=== PATIENT | male | born 1945 | race Caucasian/White ===

== ENCOUNTER 2019-03-06 18:27 | Inpatient (IN) | payer MEDICARE, MEDICAID ==
[~2019-03-06] VITALS: Ht 167.6 cm; Wt 58.1 kg
[2019-03-06] MEDS ORDERED: SODIUM CHLORIDE 0.9% 1,000 ML IV ONE (19:40)
[2019-03-06] MEDS ORDERED: LEVETIRACETAM 500MG PREMIX 100 ML IV ONE (19:45)
[2019-03-06 20:14] LABS: HEMOGLOBIN. 11.5 g/dL (14.0-18.0); MEAN CORPUSCULAR HEMOGLOBIN 33.9 pg (28.0-32.0); MEAN CORPUSCULAR VOLUME 100.1 fL (80.0-94.0); MEAN PLATELET VOLUME 7.1 fl (7.4-10.4); PLATELET 323 x1000/uL (130-400)
[2019-03-06 20:16] LABS: PROTHROMBIN TIME 10.2 sec (9.6-11.0)
[2019-03-06 20:18] LABS: CHLORIDE 103 mEq/L (98-107)
[2019-03-06 20:23] LABS: ETHANOL BLOOD < 10 mg/dL
[2019-03-06 20:27] LABS: CREATINE KINASE 116 IU/L (39-308)
[2019-03-06] MEDS ORDERED: VALPROATE SODIUM 500 MG in SODIUM CHLORIDE 0.9% 100 ML IV STA (20:31)
[2019-03-06 20:32] LABS: PLATELET ESTIMATE NORMAL
[2019-03-06 21:02] LABS: CLARITY URINE CLEAR (CLEAR); COLOR URINE YELLOW (YELLOW); KETONES URINE TRACE (NEGATIVE); LEUKOCYTE ESTERASE URINE NEGATIVE (NEGATIVE); NITRITE URINE NEGATIVE (NEGATIVE); OCCULT BLOOD URINE NEGATIVE (NEGATIVE); PH URINE 6.5 (4.5-8.0); PROTEIN URINE NEGATIVE (NEGATIVE); SPECIFIC GRAVITY URINE 1.017 (1.005-1.030)
[2019-03-06] MEDS ORDERED: LEVOFLOXACIN 500MG PREMIX 100 ML IV ONE (21:15)
[2019-03-06] MEDS ORDERED: PIPERACILLIN/TAZ 3.375G PREMIX 50 ML IV ONE (21:15)
[2019-03-06 21:26] LABS: *AMPHETAMINES SCREEN URINE NEGATIVE (NEGATIVE)
[2019-03-06 21:27] LABS: *BARBITURATES SCREEN URINE NEGATIVE (NEGATIVE); *BENZODIAZEPINES SCREEN URINE PRESUMTIVE POSITIVE (NEGATIVE); *COCAINE SCREEN URINE NEGATIVE (NEGATIVE)
[2019-03-06 21:28] LABS: CANNABINOID URINE SCREEN NEGATIVE (NEGATIVE); METHADONE URINE SCREEN NEGATIVE (NEGATIVE); OPIATES URINE SCREEN NEGATIVE (NEGATIVE)
[2019-03-06] MEDS ORDERED: DILTIAZEM HCL 5MG/ML 5ML VIAL IV PRN (21:45)
[2019-03-06] MEDS ORDERED: MORPHINE SULFATE 2 MG/ML CPJ (NOT FOR IM USE) IV PRN (21:45)
[2019-03-06] MEDS ORDERED: CLONIDINE 0.1MG TABLET PO PRN (22:00)
[2019-03-06] MEDS ORDERED: PIPERACILLIN/TAZ 3.375G PREMIX 50 ML IV SCH (22:00)
[2019-03-06] MEDS ORDERED: VANCOMYCIN 1 G PREMIX 200 ML IV SCH (22:00)
[2019-03-06] MEDS ORDERED: DIPHENHYDRAMINE 50MG/ML VIAL IV PRN (22:00)
[2019-03-06] MEDS ORDERED: MAGNESIUM/ALUMINUM HYDROXIDE/SIMETHICONE 30ML UDC PO PRN (22:00)
[2019-03-06] MEDS ORDERED: HYDROCODONE/ACETAMINOPHEN 10/325MG TABLET PO PRN (22:00)
[2019-03-06] MEDS ORDERED: GUAIFENESIN 200MG/10ML SUGAR FREE UDC PO PRN (22:00)
[2019-03-06] MEDS ORDERED: ACETAMINOPHEN 325MG TABLET PO PRN (22:00)
[2019-03-06] MEDS ORDERED: ONDANSETRON HCL 4MG/2ML INJ IV PRN (22:00)
[2019-03-06] MEDS ORDERED: LORAZEPAM 2MG/ML CPJ IV PRN (22:00)
[2019-03-06] MEDS ORDERED: DOCUSATE SODIUM 100MG CAPSULE PO PRN (22:00)
[2019-03-06] MEDS ORDERED: IPRATROPIUM/ALBUTEROL 0.5-3(2.5)MG/3ML NEB INH PRN (22:00)
[2019-03-06 22:51] LABS: PHENCYCLIDINE URINE SCREEN NEGATIVE (NEGATIVE)
[2019-03-07] VITALS (31 sets, daily range): BP systolic 108–160; BP diastolic 61–87
[2019-03-07] MEDS: DEXAMETHASONE 4MG/ML 1ML VIAL IV SCH ×4 (00:10→18:05)
[2019-03-07] MEDS: DEXT 5%/LACTATED RINGERS 1,000 ML IV SCH ×2 (00:10→16:43)
[2019-03-07] MEDS: BLOOD SUGAR DIAGNOSTIC STRIP TEST SCH ×3 (00:16→18:06)
[2019-03-07] MEDS ORDERED: VANCOMYCIN 1 G PREMIX 200 ML IV NR (01:00)
[2019-03-07] MEDS ORDERED: GABA100C MT (02:22)
[2019-03-07] MEDS ORDERED: QUET25TA PO (02:22)
[2019-03-07] MEDS ORDERED: KEPP500 PO (02:23)
[2019-03-07] MEDS ORDERED: VALP250C3 PO (02:25)
[2019-03-07] MEDS ORDERED: GLIP5TAB12 PO (02:25)
[2019-03-07] MEDS ORDERED: METF-416 PO (02:30)
[2019-03-07] MEDS ORDERED: DONE10TA11 PO (02:30)
[2019-03-07] MEDS ORDERED: MELO-104 PO (02:30)
[2019-03-07] MEDS ORDERED: LEVO100T9 MT (02:30)
[2019-03-07] MEDS ORDERED: DOCU-150 PO (02:30)
[2019-03-07] MEDS ORDERED: FERR325T6 MT (02:30)
[2019-03-07] MEDS ORDERED: MELA3TAB MT (02:30)
[2019-03-07] MEDS ORDERED: ASPI-1393 PO (02:30)
[2019-03-07] MEDS: PIPERACILLIN/TAZOBACTAM 3.375 G in DEXT 5% WATER 100 ML IV SCH ×3 (06:20→21:47)
[2019-03-07] MEDS: SODIUM CHLORIDE 0.9% INJ 3ML FLUSH IVF SCH ×2 (06:20→21:47)
[2019-03-07 06:28] LABS: CHLORIDE 101 mEq/L (98-107)
[2019-03-07 06:41] LABS: HEMOGLOBIN. 10.9 g/dL (14.0-18.0); MEAN CORPUSCULAR HEMOGLOBIN 34.9 pg (28.0-32.0); MEAN CORPUSCULAR VOLUME 98.8 fL (80.0-94.0); MEAN PLATELET VOLUME 7.3 fl (7.4-10.4); PLATELET 292 x1000/uL (130-400); RED BLOOD CELL COUNT 3.13 mill/uL (4.7-6.1); RED CELL DISTRIBUTION WIDTH 13.6 % (11.6-14.6)
[2019-03-07] MEDS ORDERED: LEVETIRACETAM 500MG in SODIUM CHLORIDE 0.9% 100ML IV SCH (09:00)
[2019-03-07] MEDS ORDERED: LEVETIRACETAM 500MG PREMIX 100 ML IV SCH (09:00)
[2019-03-07 12:06] LABS: PLATELET ESTIMATE NORMAL
[2019-03-07] MEDS: VANCOMYCIN 750 MG PREMIX 150 ML IV SCH (18:05)
[2019-03-07] MEDS ORDERED: LEVETIRACETAM 500 MG in SODIUM CHLORIDE 0.9% 100 ML IV NR (18:30)
[2019-03-07 20:15] LABS: BG BASE EXCESS -0.6 mmol/L (-2.0-2.0); BG CARBOXYHEMOGLOBIN 0.3 % (0.5-1.5); BG DEOXYHEMOGLOBIN 22.7 % (0.0-5.0); BG FRACTION INSPIRED OXYGEN 36; BG HCO3 ACT 22.1 mmol/L (22.0-26.0); BG METHEMOGLOBIN 0.3 % (0.0-1.5); BG OXYGEN SATURATION 77.2 % (92.0-98.5); BG OXYHEMOGLOBIN 76.7 % (94.0-97.0); BG PH 7.471 (7.350-7.450); BG PO2 40.2 mmHg (75.0-100.0); BG SAMPLE SITE RIGHT BRACHIAL; BG TOTAL HEMOGLOBIN 13.3 g/dL (12.0-18.0); BG VENT MODE NASAL CANNULA
[2019-03-07] MEDS ORDERED: MANNITOL 12.5G (25%) VIAL 50ML IV NR (20:15)
[2019-03-07] MEDS ORDERED: MANNITOL 20% (20GM/100ML) BAG 500ML PREMIX IV ONE (20:15)
[2019-03-07] MEDS ORDERED: PROPOFOL 10MG/ML 100ML 100 ML IV PRN (20:45)
[2019-03-07] MEDS ORDERED: LEVETIRACETAM 1,000 MG in SODIUM CHLORIDE 0.9% 100 ML IV SCH (21:00)
[2019-03-07] MEDS: LEVETIRACETAM 1,000 MG in SODIUM CHLORIDE 0.9% 100 ML IV SCH (21:46)
[2019-03-07 21:49] LABS: BG BASE EXCESS -1.9 mmol/L (-2.0-2.0); BG CARBOXYHEMOGLOBIN 0.3 % (0.5-1.5); BG DEOXYHEMOGLOBIN 0.5 % (0.0-5.0); BG FRACTION INSPIRED OXYGEN 100; BG HCO3 ACT 21.2 mmol/L (22.0-26.0); BG METHEMOGLOBIN 0.3 % (0.0-1.5); BG OXYGEN SATURATION 99.5 % (92.0-98.5); BG OXYHEMOGLOBIN 98.9 % (94.0-97.0); BG PCO2 31.1 mmHg (35.0-45.0); BG PH 7.451 (7.350-7.450); BG PIP 29 cmH2O; BG PO2 517.5 mmHg (75.0-100.0); BG SAMPLE SITE RIGHT BRACHIAL; BG TIDAL VOLUME(mL) 500 mL; BG TOTAL HEMOGLOBIN 12.8 g/dL (12.0-18.0); BG VENT MODE VENT - A/C; BG VENT RATE 12 set
[2019-03-07] MEDS ORDERED: SUCCINYLCHOLINE CHLORIDE 200MG/10ML IV ONE (22:00)
[2019-03-07] MEDS ORDERED: ETOMIDATE 2MG/ML 10ML VIAL IV ONE (22:00)
[2019-03-08] VITALS (85 sets, daily range): BP systolic 99–156; BP diastolic 57–96
[2019-03-08] MEDS: DEXAMETHASONE 4MG/ML 1ML VIAL IV SCH ×5 (00:26→23:28)
[2019-03-08] MEDS: BLOOD SUGAR DIAGNOSTIC STRIP TEST SCH ×5 (00:40→23:22)
[2019-03-08] MEDS: IPRATROPIUM/ALBUTEROL 0.5-3(2.5)MG/3ML NEB HHN SCH ×4 (02:21→20:08)
[2019-03-08] MEDS: VANCOMYCIN 750 MG PREMIX 150 ML IV SCH ×2 (05:06→17:12)
[2019-03-08] MEDS: SODIUM CHLORIDE 0.9% INJ 3ML FLUSH IVF SCH ×3 (05:06→21:21)
[2019-03-08] MEDS: PIPERACILLIN/TAZOBACTAM 3.375 G in DEXT 5% WATER 100 ML IV SCH ×3 (06:34→21:21)
[2019-03-08 08:41] LABS: BG DEOXYHEMOGLOBIN 1.5 % (0.0-5.0); BG FRACTION INSPIRED OXYGEN 40; BG HCO3 ACT 21.5 mmol/L (22.0-26.0); BG OXYGEN SATURATION 98.5 % (92.0-98.5); BG OXYHEMOGLOBIN 98.5 % (94.0-97.0); BG PH 7.488 (7.350-7.450); BG PO2 134.2 mmHg (75.0-100.0); BG SAMPLE SITE RIGHT RADIAL; BG TIDAL VOLUME(mL) 500 mL; BG TOTAL HEMOGLOBIN 11.5 g/dL (12.0-18.0); BG VENT MODE VENT - A/C; BG VENT RATE 12 set
[2019-03-08] MEDS ORDERED: PROPOFOL 200MG/20ML VIAL IV ONE (09:04)
[2019-03-08] MEDS ORDERED: FENTANYL CITRATE/PF 50MCG/ML 2ML VIAL ONE (09:04)
[2019-03-08] MEDS ORDERED: ROCURONIUM BROMIDE 10MG/ML VIAL 5ML IV ONE (09:04)
[2019-03-08] MEDS ORDERED: MIDAZOLAM HCL 2 MG/2 ML VIAL ONE (09:05)
[2019-03-08] MEDS ORDERED: THROMBIN (BOVINE) 5000 UNITS/VIAL TOP ONE (09:16)
[2019-03-08] MEDS ORDERED: POVIDONE-IODINE OINT 28.4GM TOP ONE (09:16)
[2019-03-08] MEDS ORDERED: LIDOCAINE HCL/EPINEPHRINE 1%-EPI 1:100,000 20 ML VIAL ONE (09:16)
[2019-03-08] MEDS ORDERED: BACITRACIN 15GM TUBE TOP ONE ×2 (09:16→09:53)
[2019-03-08] MEDS ORDERED: NORMAL SALINE 0.9% 10 ML SYR ONE (09:16)
[2019-03-08] MEDS ORDERED: LACTATED RINGERS 3,000 ML IV ONE (09:17)
[2019-03-08] MEDS ORDERED: BACITRACIN 50,000 UNITS/VIAL ONE (09:17)
[2019-03-08] MEDS: LEVETIRACETAM 1,000 MG in SODIUM CHLORIDE 0.9% 100 ML IV SCH ×2 (09:28→20:43)
[2019-03-08] MEDS ORDERED: HYDRALAZINE 20MG/ML VIAL IV PRN (09:30)
[2019-03-08] MEDS ORDERED: INSULIN REGULAR (HUMULIN R) 300UNITS/3ML IV NR (10:15)
[2019-03-08] MEDS ORDERED: MORPHINE SULFATE 2 MG/ML CPJ (NOT FOR IM USE) IV PRN (12:45)
[2019-03-08] MEDS ORDERED: DEXTROSE 50% WATER 50ML SYRINGE IV PRN (14:30)
[2019-03-08] MEDS: DEXT 5%/LACTATED RINGERS 1,000 ML IV SCH (14:41)
[2019-03-08] MEDS: MICONAZOLE NITRATE 2% OINT 71GM TOP SCH ×2 (14:42→20:43)
[2019-03-08] MEDS: INSULIN LISPRO 100 UNITS/ML SUBCUT SCH ×2 (17:12→23:29)
[2019-03-08] MEDS ORDERED: BLOOD SUGAR DIAGNOSTIC STRIP TEST SCH (18:00)
[2019-03-08] MEDS: NICARDIPINE 100 MG in SODIUM CHLORIDE 0.9% 60 ML IV PRN (21:57)
[2019-03-09] VITALS (89 sets, daily range): BP systolic 115–145; BP diastolic 48–84
[2019-03-09] MEDS: DEXT 5%/LACTATED RINGERS 1,000 ML IV SCH ×2 (02:00→18:21)
[2019-03-09] MEDS: IPRATROPIUM/ALBUTEROL 0.5-3(2.5)MG/3ML NEB HHN SCH ×4 (03:12→20:11)
[2019-03-09] MEDS: PIPERACILLIN/TAZOBACTAM 3.375 G in DEXT 5% WATER 100 ML IV SCH ×3 (05:42→22:59)
[2019-03-09 05:55] LABS: BASOPHILS % 0.3 % (0.0-2.0); HEMATOCRIT. 32.3 % (42.0-52.0); HEMOGLOBIN. 11.5 g/dL (14.0-18.0); LYMPHOCYTES % 7.7 % (20.0-50.0); MEAN CORPUSCULAR HEMOGLOBIN 34.7 pg (28.0-32.0); MEAN CORPUSCULAR VOLUME 97.8 fL (80.0-94.0); MEAN PLATELET VOLUME 7.2 fl (7.4-10.4); MONOCYTES % 4.9 % (2.0-8.0); NEUTROPHILS % 87.1 % (40.0-76.0); PLATELET 292 x1000/uL (130-400); RED BLOOD CELL COUNT 3.31 mill/uL (4.7-6.1); RED CELL DISTRIBUTION WIDTH 13.6 % (11.6-14.6)
[2019-03-09 05:57] LABS: CHLORIDE 96 mEq/L (98-107)
[2019-03-09] MEDS: DEXAMETHASONE 4MG/ML 1ML VIAL IV SCH ×3 (06:04→17:12)
[2019-03-09 06:05] LABS: VANCOMYCIN TROUGH 5.9 ug/mL (5.0-10.0)
[2019-03-09] MEDS: SODIUM CHLORIDE 0.9% INJ 3ML FLUSH IVF SCH ×3 (06:06→22:59)
[2019-03-09] MEDS: INSULIN LISPRO 100 UNITS/ML SUBCUT SCH ×3 (06:06→17:12)
[2019-03-09] MEDS: BLOOD SUGAR DIAGNOSTIC STRIP TEST SCH ×3 (06:06→17:01)
[2019-03-09] MEDS: VANCOMYCIN 750 MG PREMIX 150 ML IV SCH (06:33)
[2019-03-09] MEDS: LEVETIRACETAM 1,000 MG in SODIUM CHLORIDE 0.9% 100 ML IV SCH ×2 (08:08→20:41)
[2019-03-09] MEDS: MICONAZOLE NITRATE 2% OINT 71GM TOP SCH ×2 (08:08→20:41)
[2019-03-09 08:27] LABS: BG BASE EXCESS -0.4 mmol/L (-2.0-2.0); BG CARBOXYHEMOGLOBIN 0.3 % (0.5-1.5); BG DEOXYHEMOGLOBIN 0.9 % (0.0-5.0); BG FRACTION INSPIRED OXYGEN 40; BG METHEMOGLOBIN 0.3 % (0.0-1.5); BG OXYGEN SATURATION 99.1 % (92.0-98.5); BG OXYHEMOGLOBIN 98.5 % (94.0-97.0); BG PCO2 29.2 mmHg (35.0-45.0); BG PH 7.494 (7.350-7.450); BG PO2 189.2 mmHg (75.0-100.0); BG SAMPLE SITE RIGHT RADIAL; BG TIDAL VOLUME(mL) 500 mL; BG TOTAL HEMOGLOBIN 11.9 g/dL (12.0-18.0); BG VENT MODE VENT - A/C; BG VENT RATE 12 set
[2019-03-09] MEDS: VANCOMYCIN 1 G PREMIX 200 ML IV SCH ×2 (14:08→21:32)
[2019-03-09] MEDS: NICARDIPINE 100 MG in SODIUM CHLORIDE 0.9% 60 ML IV PRN (16:29)
[2019-03-10] VITALS (94 sets, daily range): BP systolic 109–173; BP diastolic 40–102
[2019-03-10] MEDS: BLOOD SUGAR DIAGNOSTIC STRIP TEST SCH ×6 (00:37→18:00)
[2019-03-10] MEDS: DEXAMETHASONE 4MG/ML 1ML VIAL IV SCH ×2 (00:42→05:07)
[2019-03-10] MEDS: INSULIN LISPRO 100 UNITS/ML SUBCUT SCH ×6 (00:44→19:03)
[2019-03-10] MEDS: IPRATROPIUM/ALBUTEROL 0.5-3(2.5)MG/3ML NEB HHN SCH ×4 (02:06→20:33)
[2019-03-10] MEDS: NICARDIPINE 100 MG in SODIUM CHLORIDE 0.9% 60 ML IV PRN ×2 (03:16→19:05)
[2019-03-10] MEDS: PIPERACILLIN/TAZOBACTAM 3.375 G in DEXT 5% WATER 100 ML IV SCH (05:07)
[2019-03-10] MEDS: SODIUM CHLORIDE 0.9% INJ 3ML FLUSH IVF SCH ×3 (05:56→21:29)
[2019-03-10] MEDS: VANCOMYCIN 1 G PREMIX 200 ML IV SCH (05:56)
[2019-03-10 07:24] LABS: BG BASE EXCESS -0.6 mmol/L (-2.0-2.0); BG CARBOXYHEMOGLOBIN 0.3 % (0.5-1.5); BG DEOXYHEMOGLOBIN 0.9 % (0.0-5.0); BG HCO3 ACT 20.9 mmol/L (22.0-26.0); BG METHEMOGLOBIN 0.1 % (0.0-1.5); BG OXYGEN SATURATION 99.1 % (92.0-98.5); BG OXYHEMOGLOBIN 98.7 % (94.0-97.0); BG PCO2 26.4 mmHg (35.0-45.0); BG PH 7.517 (7.350-7.450); BG PO2 198.4 mmHg (75.0-100.0); BG SAMPLE SITE RIGHT RADIAL; BG TIDAL VOLUME(mL) 500 mL; BG TOTAL HEMOGLOBIN 13.1 g/dL (12.0-18.0); BG VENT MODE VENT - A/C; BG VENT RATE 12 set
[2019-03-10] MEDS: LEVETIRACETAM 1,000 MG in SODIUM CHLORIDE 0.9% 100 ML IV SCH ×2 (08:17→21:28)
[2019-03-10] MEDS: DEXT 5%/0.9% NACL 1,000 ML IV SCH ×2 (08:17→23:52)
[2019-03-10] MEDS: MICONAZOLE NITRATE 2% OINT 71GM TOP SCH ×2 (09:11→21:28)
[2019-03-10 13:50] LABS: CHLORIDE 99 mEq/L (98-107)
[2019-03-10 13:57] LABS: VANCOMYCIN TROUGH 15.6 ug/mL (5.0-10.0)
[2019-03-10] MEDS ORDERED: DEXTROSE 50% WATER 50ML SYRINGE IV PRN (14:15)
[2019-03-10] MEDS: FAMOTIDINE 20MG/2ML VIAL IV SCH ×2 (15:55→21:28)
[2019-03-11] VITALS (97 sets, daily range): BP systolic 97–149; BP diastolic 52–100
[2019-03-11] MEDS: BLOOD SUGAR DIAGNOSTIC STRIP TEST SCH ×7 (00:32→23:29)
[2019-03-11] MEDS: INSULIN LISPRO 100 UNITS/ML SUBCUT SCH ×7 (00:36→23:41)
[2019-03-11] MEDS: IPRATROPIUM/ALBUTEROL 0.5-3(2.5)MG/3ML NEB HHN SCH ×3 (02:37→20:05)
[2019-03-11] MEDS: SODIUM CHLORIDE 0.9% INJ 3ML FLUSH IVF SCH ×3 (06:08→21:01)
[2019-03-11 08:00] LABS: BG BASE EXCESS -1.8 mmol/L (-2.0-2.0); BG CARBOXYHEMOGLOBIN 0.1 % (0.5-1.5); BG DEOXYHEMOGLOBIN 1.3 % (0.0-5.0); BG FRACTION INSPIRED OXYGEN 30; BG HCO3 ACT 20.2 mmol/L (22.0-26.0); BG OXYGEN SATURATION 98.7 % (92.0-98.5); BG OXYHEMOGLOBIN 98.6 % (94.0-97.0); BG PCO2 26.7 mmHg (35.0-45.0); BG PH 7.496 (7.350-7.450); BG PO2 144.8 mmHg (75.0-100.0); BG SAMPLE SITE RIGHT RADIAL; BG TIDAL VOLUME(mL) 500 mL; BG TOTAL HEMOGLOBIN 12.2 g/dL (12.0-18.0); BG VENT MODE VENT - A/C; BG VENT RATE 12 set
[2019-03-11] MEDS: FAMOTIDINE 20MG/2ML VIAL IV SCH ×2 (08:36→21:05)
[2019-03-11] MEDS: MICONAZOLE NITRATE 2% OINT 71GM TOP SCH ×2 (08:37→21:06)
[2019-03-11] MEDS: LEVETIRACETAM 1,000 MG in SODIUM CHLORIDE 0.9% 100 ML IV SCH ×2 (08:37→21:05)
[2019-03-11] MEDS: DEXT 5%/0.9% NACL 1,000 ML IV SCH (16:37)
[2019-03-12] VITALS (90 sets, daily range): BP systolic 105–162; BP diastolic 49–93
[2019-03-12] MEDS: IPRATROPIUM/ALBUTEROL 0.5-3(2.5)MG/3ML NEB HHN SCH ×4 (02:06→20:42)
[2019-03-12] MEDS: BLOOD SUGAR DIAGNOSTIC STRIP TEST SCH ×3 (05:39→17:25)
[2019-03-12] MEDS: SODIUM CHLORIDE 0.9% INJ 3ML FLUSH IVF SCH ×3 (05:39→21:04)
[2019-03-12] MEDS: INSULIN LISPRO 100 UNITS/ML SUBCUT SCH ×3 (06:00→17:28)
[2019-03-12] MEDS: FAMOTIDINE 20MG/2ML VIAL IV SCH ×2 (08:18→20:57)
[2019-03-12] MEDS: LEVETIRACETAM 1,000 MG in SODIUM CHLORIDE 0.9% 100 ML IV SCH ×2 (08:18→20:57)
[2019-03-12] MEDS: NICARDIPINE 100 MG in SODIUM CHLORIDE 0.9% 60 ML IV PRN (08:19)
[2019-03-12] MEDS: MICONAZOLE NITRATE 2% OINT 71GM TOP SCH ×2 (08:19→21:05)
[2019-03-12] MEDS: DEXT 5%/0.9% NACL 1,000 ML IV SCH (08:20)
[2019-03-12] MEDS ORDERED: LABETALOL 5MG/ML SYR 20 MG/4 ML SYRINGE IV PRN (18:45)
[2019-03-13] VITALS (45 sets, daily range): BP systolic 114–171; BP diastolic 56–99
[2019-03-13] MEDS: BLOOD SUGAR DIAGNOSTIC STRIP TEST SCH ×5 (00:10→23:50)
[2019-03-13] MEDS: INSULIN LISPRO 100 UNITS/ML SUBCUT SCH ×5 (00:15→23:49)
[2019-03-13] MEDS: IPRATROPIUM/ALBUTEROL 0.5-3(2.5)MG/3ML NEB HHN SCH ×4 (02:21→20:39)
[2019-03-13] MEDS: DEXT 5%/0.9% NACL 1,000 ML IV SCH ×2 (02:37→18:57)
[2019-03-13] MEDS: SODIUM CHLORIDE 0.9% INJ 3ML FLUSH IVF SCH ×3 (05:34→21:52)
[2019-03-13] MEDS: LABETALOL 5MG/ML SYR 20 MG/4 ML SYRINGE IV PRN (05:35)
[2019-03-13] MEDS: FAMOTIDINE 20MG/2ML VIAL IV SCH ×2 (08:23→21:52)
[2019-03-13] MEDS: LEVETIRACETAM 1,000 MG in SODIUM CHLORIDE 0.9% 100 ML IV SCH ×2 (08:23→21:51)
[2019-03-13] MEDS: MICONAZOLE NITRATE 2% OINT 71GM TOP SCH ×2 (08:24→21:52)
[2019-03-13 08:31] LABS: BG BASE EXCESS -2.9 mmol/L (-2.0-2.0); BG CARBOXYHEMOGLOBIN 0.1 % (0.5-1.5); BG DEOXYHEMOGLOBIN 1.5 % (0.0-5.0); BG FRACTION INSPIRED OXYGEN 30; BG HCO3 ACT 19.4 mmol/L (22.0-26.0); BG METHEMOGLOBIN 0.2 % (0.0-1.5); BG OXYGEN SATURATION 98.5 % (92.0-98.5); BG OXYHEMOGLOBIN 98.2 % (94.0-97.0); BG PCO2 27.2 mmHg (35.0-45.0); BG PH 7.472 (7.350-7.450); BG PO2 142.8 mmHg (75.0-100.0); BG PRESSURE SUPPORT 15; BG SAMPLE SITE RIGHT RADIAL; BG TIDAL VOLUME(mL) 500 mL; BG TOTAL HEMOGLOBIN 12.7 g/dL (12.0-18.0); BG VENT MODE VENT - SIMV; BG VENT RATE 10 set
[2019-03-14] VITALS (52 sets, daily range): BP systolic 107–182; BP diastolic 51–96
[2019-03-14] MEDS: IPRATROPIUM/ALBUTEROL 0.5-3(2.5)MG/3ML NEB HHN SCH ×4 (02:31→20:50)
[2019-03-14] MEDS: SODIUM CHLORIDE 0.9% INJ 3ML FLUSH IVF SCH ×3 (05:09→21:52)
[2019-03-14] MEDS: BLOOD SUGAR DIAGNOSTIC STRIP TEST SCH ×3 (05:15→17:53)
[2019-03-14] MEDS: INSULIN LISPRO 100 UNITS/ML SUBCUT SCH ×3 (06:27→17:56)
[2019-03-14] MEDS: FAMOTIDINE 20MG/2ML VIAL IV SCH ×2 (08:40→21:37)
[2019-03-14] MEDS: LABETALOL 5MG/ML SYR 20 MG/4 ML SYRINGE IV PRN ×2 (08:45→21:48)
[2019-03-14] MEDS: LEVETIRACETAM 1,000 MG in SODIUM CHLORIDE 0.9% 100 ML IV SCH ×2 (08:52→21:37)
[2019-03-14] MEDS: MICONAZOLE NITRATE 2% OINT 71GM TOP SCH ×2 (08:55→21:38)
[2019-03-14] MEDS: DEXT 5%/0.9% NACL 1,000 ML IV SCH (08:55)
[2019-03-15] VITALS (49 sets, daily range): BP systolic 111–163; BP diastolic 51–80
[2019-03-15] MEDS: BLOOD SUGAR DIAGNOSTIC STRIP TEST SCH ×4 (00:08→18:25)
[2019-03-15] MEDS: INSULIN LISPRO 100 UNITS/ML SUBCUT SCH ×4 (00:13→18:33)
[2019-03-15] MEDS: IPRATROPIUM/ALBUTEROL 0.5-3(2.5)MG/3ML NEB HHN SCH ×4 (01:46→20:09)
[2019-03-15] MEDS: DEXT 5%/0.9% NACL 1,000 ML IV SCH ×2 (02:42→20:20)
[2019-03-15] MEDS: SODIUM CHLORIDE 0.9% INJ 3ML FLUSH IVF SCH ×3 (06:00→21:32)
[2019-03-15] MEDS: FAMOTIDINE 20MG/2ML VIAL IV SCH ×2 (08:17→20:19)
[2019-03-15] MEDS: LEVETIRACETAM 1,000 MG in SODIUM CHLORIDE 0.9% 100 ML IV SCH ×2 (08:17→21:32)
[2019-03-15] MEDS: MICONAZOLE NITRATE 2% OINT 71GM TOP SCH ×2 (08:17→21:32)
[2019-03-15] MEDS ORDERED: HYDRALAZINE 20MG/ML VIAL IV PRN (11:15)
[2019-03-15] MEDS: ACETAMINOPHEN 650MG SUPP PR PRN (18:33)
[2019-03-16] VITALS (12 sets, daily range): BP systolic 103–154; BP diastolic 43–97
[2019-03-16] MEDS: IPRATROPIUM/ALBUTEROL 0.5-3(2.5)MG/3ML NEB HHN SCH ×4 (01:52→21:49)
[2019-03-16] MEDS: INSULIN LISPRO 100 UNITS/ML SUBCUT SCH ×4 (05:44→18:00)
[2019-03-16] MEDS: SODIUM CHLORIDE 0.9% INJ 3ML FLUSH IVF SCH ×3 (05:47→20:53)
[2019-03-16] MEDS: BLOOD SUGAR DIAGNOSTIC STRIP TEST SCH ×4 (05:48→18:12)
[2019-03-16] MEDS: LEVETIRACETAM 1,000 MG in SODIUM CHLORIDE 0.9% 100 ML IV SCH ×2 (08:54→20:53)
[2019-03-16] MEDS: FAMOTIDINE 20MG/2ML VIAL IV SCH ×2 (08:54→20:53)
[2019-03-16] MEDS: MICONAZOLE NITRATE 2% OINT 71GM TOP SCH ×2 (08:54→20:54)
[2019-03-16] MEDS: DEXT 5%/0.9% NACL 1,000 ML IV SCH (09:04)
[2019-03-16] MEDS: ACETAMINOPHEN 650MG SUPP PR PRN (16:56)
[2019-03-17] VITALS (11 sets, daily range): BP systolic 100–142; BP diastolic 58–91
[2019-03-17] MEDS: IPRATROPIUM/ALBUTEROL 0.5-3(2.5)MG/3ML NEB HHN SCH (01:03)
[2019-03-17] MEDS: DEXT 5%/0.9% NACL 1,000 ML IV SCH (04:42)
[2019-03-17] MEDS: SODIUM CHLORIDE 0.9% INJ 3ML FLUSH IVF SCH (06:00)
[2019-03-17] MEDS: INSULIN LISPRO 100 UNITS/ML SUBCUT SCH ×2 (06:00)
[2019-03-17] MEDS: BLOOD SUGAR DIAGNOSTIC STRIP TEST SCH ×2 (06:00)
[2019-03-17] MEDS: MICONAZOLE NITRATE 2% OINT 71GM TOP SCH (09:18)
[2019-03-17] MEDS: LEVETIRACETAM 1,000 MG in SODIUM CHLORIDE 0.9% 100 ML IV SCH ×2 (09:18→21:52)
[2019-03-17] MEDS: FAMOTIDINE 20MG/2ML VIAL IV SCH (09:18)
[2019-03-17] MEDS ORDERED: LORAZEPAM 2MG/ML CPJ IV PRN (10:30)
[2019-03-17] MEDS ORDERED: MORPHINE SULFATE 250 MG in DEXT 5% WATER 240 ML IV PRN (11:00)
[2019-03-18] VITALS (8 sets, daily range): BP systolic 99–110; BP diastolic 58–66
[2019-03-18] MEDS: LEVETIRACETAM 1,000 MG in SODIUM CHLORIDE 0.9% 100 ML IV SCH ×2 (09:00→21:37)
[2019-03-19] VITALS (8 sets, daily range): BP systolic 53–107; BP diastolic 35–62
[2019-03-19] MEDS: LEVETIRACETAM 1,000 MG in SODIUM CHLORIDE 0.9% 100 ML IV SCH (08:25)
== END 2019-03-19 19:00 | disposition expired | DRG 25 ==
LOC: ER 18:27 → 6WST 20:32 → EDBEDREQTM 20:37 → EDBEDREQ 20:37 → ENRESERV 21:34 → MICUNO 03-07 17:09 → 5EST 03-14 20:00
PROVIDERS: ADMIT Internal Medicine; ATTEND Internal Medicine
PROC: 5A1955Z Respiratory Ventilation, Greater than 96 Consecutive Hours (ICD-10-PCS; 2019-03-07)
PROC: 0BH17EZ Insertion of Endotracheal Airway into Trachea, Via Natural or Artificial Opening (ICD-10-PCS; 2019-03-07)
PROC: 00C40ZZ Extirpation of Matter from Intracranial Subdural Space, Open Approach (ICD-10-PCS; principal; 2019-03-08)
PROC: 00H032Z Insertion of Monitoring Device into Brain, Percutaneous Approach (ICD-10-PCS; 2019-03-08)
PROC: 00U207Z Supplement Dura Mater with Autologous Tissue Substitute, Open Approach (ICD-10-PCS; 2019-03-08)
PROC: 4A103BD Monitoring of Intracranial Pressure, Percutaneous Approach (ICD-10-PCS; 2019-03-08)
DX: S06.5X9A Traumatic subdural hemorrhage with loss of consciousness of unspecified duration, initial encounter (principal); G93.41 Metabolic encephalopathy; J96.00 Acute respiratory failure, unspecified whether with hypoxia or hypercapnia; I50.32 Chronic diastolic (congestive) heart failure; R65.10 Systemic inflammatory response syndrome (SIRS) of non-infectious origin without acute organ dysfunction; I08.0 Rheumatic disorders of both mitral and aortic valves; I95.9 Hypotension, unspecified; G40.409 Other generalized epilepsy and epileptic syndromes, not intractable, without status epilepticus; E11.649 Type 2 diabetes mellitus with hypoglycemia without coma; D64.9 Anemia, unspecified; E86.0 Dehydration; G30.9 Alzheimer's disease, unspecified; F02.80 Dementia in other diseases classified elsewhere, unspecified severity, without behavioral disturbance, psychotic disturbance, mood disturbance, and anxiety; I11.0 Hypertensive heart disease with heart failure; Z51.5 Encounter for palliative care; Z66 Do not resuscitate; L89.890 Pressure ulcer of other site, unstageable; L89.020 Pressure ulcer of left elbow, unstageable; L89.010 Pressure ulcer of right elbow, unstageable; W18.39XA Other fall on same level, initial encounter; Y93.89 Activity, other specified; Y92.89 Other specified places as the place of occurrence of the external cause; Z79.82 Long term (current) use of aspirin; Y99.8 Other external cause status
CPT/HCPCS: 31500; 36415; 36600; 71045; 80048; 80061; 80165; 80202; 80305; 80320; 81003; 82140; 82375; 82550; 82553; 82805; 82962; 83880; 84478; 84484; 88305; 93005; 93306; 93970; 94002; 94003; 94640; 96374; 99285; C1713; C1758; J0330; J1100; J1815; J1953; J1956; J2060; J2150; J2250; J2270; J2543; J2704; J3010; J3370; J3490; J7030; J7042; J7050; J7060; J7120; J7620; G0480